=== PATIENT | female | born 1950 | race Hispanic/Latino ===

== ENCOUNTER → 2018-08-17 | Outpatient (CLI) | payer OTHER | END | disposition home or self-care (01) | LOC: OIH 16:14 | PROVIDERS: ATTEND Internal Medicine | DX: M47.896 Other spondylosis, lumbar region (principal); M16.0 Bilateral primary osteoarthritis of hip; M17.0 Bilateral primary osteoarthritis of knee; I70.0 Atherosclerosis of aorta | CPT/HCPCS: 72100; 73521; 73562 ==

== ENCOUNTER → 2019-07-24 | Outpatient (CLI) | payer OTHER | END | disposition home or self-care (01) | LOC: RAH 09:56 | PROVIDERS: ATTEND Internal Medicine | DX: N64.89 Other specified disorders of breast (principal); Z85.3 Personal history of malignant neoplasm of breast | CPT/HCPCS: 77065 ==

== ENCOUNTER → 2020-08-06 | Outpatient (CLI) | payer OTHER | END | disposition home or self-care (01) | LOC: RAH 10:00 | PROVIDERS: ATTEND Internal Medicine | DX: N63.21 Unspecified lump in the left breast, upper outer quadrant (principal); Z85.3 Personal history of malignant neoplasm of breast | CPT/HCPCS: 76641; 77065 ==

== ENCOUNTER → 2020-09-08 | Outpatient (CLI) | payer OTHER ==
[2020-09-08 08:56] LABS: INR 1.06 (0.85-1.15); PARTIAL THROMBOPLASTIN TIME 25.2 SEC (26.3-35.5); PROTHROMBIN TIME 11.4 SEC (9.6-11.6)
--- NOTE | 2020-09-08 09:30 | NUR ---
US GUIDED BIOPSY OF LEFT BREAST MASS PROCEDURE PERFORMED BY DR. HUSSEIN. PUNCTURE SITE LEFT LATERAL BREAST AND PATIENT TOLERATED PROCEDURE WELL. SPECIMEN X 3 COLLECTED AND SENT TO LAB. TISSUE MARKER DEPLOYED TO BIOPSY SITE. END OF PROCEDURE AT 0950. BIOPSY NEEDLE REMOVED AND DRESSING APPLIED. NO BLEEDING NOTED. DISCHARGE INSTRUCTIONS GIVEN TO PATIENT AND VERBALIZED UNDERSTANDING. DISCHARGED VIA AMBULATORY @ 1040 STABLE, AAO X 3 WITH NO C/O PAIN.
--- NOTE | 2020-09-08 10:30 | NUR ---
MAMMOGRAM OF LEFT BREAST PT TAKEN VIA W/C FOR MAMMOGRAM OF LEFT BREAST TO CHECK PLACEMENT OF THE TISSUE MARKER BY JADEN MANGO BCN.
== END | disposition home or self-care (01) ==
LOC: RAH 07:45
PROVIDERS: ATTEND Internal Medicine
DX: C50.411 Malignant neoplasm of upper-outer quadrant of right female breast (principal); N63.20 Unspecified lump in the left breast, unspecified quadrant
CPT/HCPCS: 19083; 77065; 85610; 85730; A4215 ×3

== ENCOUNTER → 2021-01-30 | Outpatient (CLI) | payer OTHER | END | disposition home or self-care (01) | LOC: RAH 10:50 | DX: M47.816 Spondylosis without myelopathy or radiculopathy, lumbar region (principal); M25.551 Pain in right hip; M25.552 Pain in left hip | CPT/HCPCS: 72100; 73522 ==

== ENCOUNTER → 2021-12-01 | Outpatient (CLI) | payer OTHER | END | disposition home or self-care (01) | LOC: RAH 10:58 | DX: M47.816 Spondylosis without myelopathy or radiculopathy, lumbar region (principal); M15.0 Primary generalized (osteo)arthritis; M15.9 Polyosteoarthritis, unspecified | CPT/HCPCS: 72148 ==